=== PATIENT | male | born 1965 | race Caucasian/White ===

== ENCOUNTER → 2021-01-22 08:02 | Outpatient (BNVA) | payer BC, SELFPAY | PROVIDERS: PCP Internal Medicine; Visit Provider Internal Medicine ==

== ENCOUNTER 2021-02-03 11:24 | Outpatient (REF) | payer BC, SELFPAY ==
[2021-02-03 13:38] LABS: Estimated Average Glucose 286 mg/dL; Hemoglobin A1c % 11.6 %
[2021-02-03 14:04] LABS: Alanine Aminotransferase 27 U/L (0-40); Albumin Level 4.1 g/dL (3.5-5.0); Alkaline Phosphatase 123 U/L (39-117); Anion Gap 14 (12-20); Aspartate Amino Transferase 17 U/L (5-37); Bilirubin Total 0.7 mg/dL (0.0-1.0); Blood Urea Nitrogen 26 mg/dL (9-16); Calcium 9.1 mg/dL (8.4-10.2); Carbon Dioxide 22 mmol/L (22-29); Chloride 106 mmol/L (96-108); Cholesterol 97 mg/dL; Estimated Glomerular Filt Rate 54; Glucose Random 177 mg/dL (60-115); HDL Cholesterol 30 mg/dL; LDL Cholesterol Calculated 41 mg/dl; Potassium 4.4 mmol/L (3.3-5.1); Sodium 138 mmol/L (135-145); Total Protein 7.7 g/dL (6.5-8.0); Triglycerides 130 mg/dL
[2021-02-03 14:20] LABS: Vitamin D 25-OH Total 22.5 ng/mL (>30)
[2021-02-03 14:51] LABS: Microalbum/Creatinine Ratio Ur 952.3 ug/mg cr
[2021-02-04 10:57] LABS: LDL Cholesterol Direct 46 mg/dL (<100)
[2021-02-07 04:22] LABS: Fructosamine 333 umol/L (205-285)
[2021-02-07 13:36] LABS: Glutamic acid decarboxylase Ab <5 IU/mL (<5)
[2021-02-11 20:01] LABS: Insulinoma associated 2 aatb <5.4 U/mL (<5.4)
[2021-02-12 01:41] LABS: Islet Cell Antibody Screen NEGATIVE (NEGATIVE)
== END 2021-02-03 11:25 | disposition home or self-care (01) ==
LOC: HO.10HDL 11:24
PROVIDERS: Visit Provider Internal Medicine
DX: E11.65 Type 2 diabetes mellitus with hyperglycemia (principal); E55.9 Vitamin D deficiency, unspecified; E11.29 Type 2 diabetes mellitus with other diabetic kidney complication; R80.9 Proteinuria, unspecified; Z79.4 Long term (current) use of insulin
CPT/HCPCS: 36415; 80053; 80061; 82043; 82306; 82985; 83036; 83721; 86255; 86341

== ENCOUNTER → 2021-02-26 09:00 | Outpatient (BNVA) | payer BC, SELFPAY | PROVIDERS: PCP Internal Medicine; Visit Provider Dietitian, Registered | DX: E11.65 Type 2 diabetes mellitus with hyperglycemia (principal) | CPT/HCPCS: 97802 ==

== ENCOUNTER → 2021-03-25 08:56 | Outpatient (BNVA) | payer BC, SELFPAY | PROVIDERS: PCP Internal Medicine; Visit Provider Internal Medicine | DX: E11.65 Type 2 diabetes mellitus with hyperglycemia (principal); E11.29 Type 2 diabetes mellitus with other diabetic kidney complication; E11.21 Type 2 diabetes mellitus with diabetic nephropathy; E11.40 Type 2 diabetes mellitus with diabetic neuropathy, unspecified; I12.9 Hypertensive chronic kidney disease with stage 1 through stage 4 chronic kidney disease, or unspecified chronic kidney disease; R80.9 Proteinuria, unspecified; E78.5 Hyperlipidemia, unspecified; E55.9 Vitamin D deficiency, unspecified; I25.10 Atherosclerotic heart disease of native coronary artery without angina pectoris; N18.31 Chronic kidney disease, stage 3a; Z87.891 Personal history of nicotine dependence; Z79.4 Long term (current) use of insulin; Z79.899 Other long term (current) drug therapy | CPT/HCPCS: 82947 ==

== ENCOUNTER → 2021-04-09 13:11 | Outpatient (BNVA) | payer BC, SELFPAY | PROVIDERS: PCP Internal Medicine; Visit Provider Dietitian, Registered | DX: E11.65 Type 2 diabetes mellitus with hyperglycemia (principal); Z71.3 Dietary counseling and surveillance | CPT/HCPCS: 97803 ==

== ENCOUNTER → 2021-05-21 14:01 | Outpatient (BNVA) | payer BC, SELFPAY | PROVIDERS: PCP Internal Medicine; Visit Provider Dietitian, Registered | DX: E11.65 Type 2 diabetes mellitus with hyperglycemia (principal) | CPT/HCPCS: 97803 ==

== ENCOUNTER → 2021-07-14 13:04 | Outpatient (BNVA) | payer BC, SELFPAY | PROVIDERS: PCP Internal Medicine; Visit Provider Nurse Practitioner Gerontology | DX: E11.29 Type 2 diabetes mellitus with other diabetic kidney complication (principal); E11.21 Type 2 diabetes mellitus with diabetic nephropathy; E11.22 Type 2 diabetes mellitus with diabetic chronic kidney disease; I12.9 Hypertensive chronic kidney disease with stage 1 through stage 4 chronic kidney disease, or unspecified chronic kidney disease; N18.31 Chronic kidney disease, stage 3a; E55.9 Vitamin D deficiency, unspecified; E78.5 Hyperlipidemia, unspecified; R80.9 Proteinuria, unspecified; Z79.4 Long term (current) use of insulin | CPT/HCPCS: 82947; 83036 ==

== ENCOUNTER → 2021-08-24 13:27 | Outpatient (BNVA) | payer BC, SELFPAY | PROVIDERS: PCP Internal Medicine; Visit Provider Dietitian, Registered | DX: E11.65 Type 2 diabetes mellitus with hyperglycemia (principal); Z71.3 Dietary counseling and surveillance | CPT/HCPCS: 97803 ==

== ENCOUNTER 2021-10-14 13:07 | Outpatient (REF) | payer BC, SELFPAY ==
[2021-10-14 14:32] LABS: Alanine Aminotransferase 27 U/L (0-40); Albumin Level 4.1 g/dL (3.5-5.0); Alkaline Phosphatase 120 U/L (39-117); Anion Gap 17 (12-20); Aspartate Amino Transferase 19 U/L (5-37); Bilirubin Total 1.1 mg/dL (0.0-1.0); Blood Urea Nitrogen 30 mg/dL (9-16); Calcium 9.6 mg/dL (8.4-10.2); Carbon Dioxide 21 mmol/L (22-29); Chloride 105 mmol/L (96-108); Cholesterol 92 mg/dL; Estimated Glomerular Filt Rate 49; Glucose Fasting 164 mg/dL (60-99); HDL Cholesterol 32 mg/dL; LDL Cholesterol Calculated 40 mg/dl; Potassium 4.6 mmol/L (3.3-5.1); Sodium 138 mmol/L (135-145); Total Protein 7.6 g/dL (6.5-8.0); Triglycerides 104 mg/dL
[2021-10-14 14:50] LABS: Vitamin D 25-OH Total 29.2 ng/mL (>30)
[2021-10-14 14:57] LABS: Creatinine Urine 94.71 mg/dL; Microalbum/Creatinine Ratio Ur 382.2 ug/mg cr
[2021-10-15 03:07] LABS: LDL Cholesterol Direct 41 mg/dL (<100)
== END 2021-10-14 13:08 | disposition home or self-care (01) ==
LOC: HO.10HDL 13:07
PROVIDERS: Absent Provider Internal Medicine; Visit Provider Nurse Practitioner Gerontology
DX: E11.29 Type 2 diabetes mellitus with other diabetic kidney complication (principal); R80.9 Proteinuria, unspecified; E55.9 Vitamin D deficiency, unspecified; Z79.4 Long term (current) use of insulin
CPT/HCPCS: 36415; 80053; 80061; 82043; 82306; 83721

== ENCOUNTER → 2021-10-27 13:52 | Outpatient (BNVA) | payer BC, SELFPAY | PROVIDERS: PCP Internal Medicine; Visit Provider Nurse Practitioner Gerontology | DX: E11.29 Type 2 diabetes mellitus with other diabetic kidney complication (principal); R80.9 Proteinuria, unspecified; E11.21 Type 2 diabetes mellitus with diabetic nephropathy; I12.9 Hypertensive chronic kidney disease with stage 1 through stage 4 chronic kidney disease, or unspecified chronic kidney disease; E11.22 Type 2 diabetes mellitus with diabetic chronic kidney disease; N18.31 Chronic kidney disease, stage 3a; E55.9 Vitamin D deficiency, unspecified; E78.5 Hyperlipidemia, unspecified; Z79.4 Long term (current) use of insulin | CPT/HCPCS: 82947; 83036 ==

== ENCOUNTER → 2021-11-25 10:00 | Outpatient (BNVA) | payer BC, SELFPAY | PROVIDERS: PCP Internal Medicine; Visit Provider Dietitian, Registered | DX: E11.65 Type 2 diabetes mellitus with hyperglycemia (principal) | CPT/HCPCS: 97803 ==

== ENCOUNTER 2022-01-26 06:07 | Outpatient (REF) | payer BC, SELFPAY ==
[2022-01-26 11:47] LABS: Anion Gap 14 (12-20); Blood Urea Nitrogen 26 mg/dL (9-16); Calcium 9.4 mg/dL (8.4-10.2); Carbon Dioxide 22 mmol/L (22-29); Chloride 109 mmol/L (96-108); Estimated Glomerular Filt Rate 48; Glucose Fasting 183 mg/dL (60-99); Potassium 4.6 mmol/L (3.3-5.1); Sodium 140 mmol/L (135-145)
[2022-01-28 03:58] LABS: C Peptide 2.69 ng/mL (0.80-3.85)
[2022-01-31 21:47] LABS: Glutamic acid decarboxylase Ab <5 IU/mL (<5)
[2022-02-03 23:50] LABS: Islet Cell Antibody Screen NEGATIVE (NEGATIVE)
== END 2022-01-26 06:08 | disposition home or self-care (01) ==
LOC: HO.HMGCLDS 06:07
PROVIDERS: PCP Internal Medicine; Visit Provider Nurse Practitioner Gerontology
DX: E11.65 Type 2 diabetes mellitus with hyperglycemia (principal)
CPT/HCPCS: 36415; 80048; 84681; 86255; 86341

== ENCOUNTER → 2022-01-28 14:30 | Outpatient (BNVA) | payer BC, SELFPAY | PROVIDERS: PCP Internal Medicine; Visit Provider Nurse Practitioner Gerontology | DX: E11.29 Type 2 diabetes mellitus with other diabetic kidney complication (principal); E11.21 Type 2 diabetes mellitus with diabetic nephropathy; E11.22 Type 2 diabetes mellitus with diabetic chronic kidney disease; I12.9 Hypertensive chronic kidney disease with stage 1 through stage 4 chronic kidney disease, or unspecified chronic kidney disease; N18.31 Chronic kidney disease, stage 3a; E78.5 Hyperlipidemia, unspecified; E55.9 Vitamin D deficiency, unspecified; R80.9 Proteinuria, unspecified; Z79.4 Long term (current) use of insulin | CPT/HCPCS: 82947; 83036 ==

== ENCOUNTER → 2022-02-26 11:00 | Outpatient (BNVA) | payer BC, SELFPAY | PROVIDERS: PCP Internal Medicine; Visit Provider Dietitian, Registered | DX: E11.65 Type 2 diabetes mellitus with hyperglycemia (principal) | CPT/HCPCS: 97803 ==

== ENCOUNTER 2022-03-03 14:47 | Outpatient (REF) | payer BC, SELFPAY ==
--- NOTE | ~2022-03-03 | XR_ITS ---
EXAMINATION: XR HIP, LEFT CLINICAL INFORMATION: Pain left hand. COMPARISON: CT abdomen and pelvis 10/03/2018 ([facility]). TECHNIQUE: AP view pelvis is performed along with AP and frog-lateral projections left hip. FINDINGS: No fracture, dislocation, destructive process. Probable mild degenerative changes SI joints. Pubis unremarkable. Normal bony mineralization. Left hip has axial joint narrowing. There are osteophytes efface femoral head no visible erosive change or chondrocalcinosis. Small corticated ossicle is present at the superior aspect greater trochanter, similar to outside CT. XR/XR hip LT min 2V IMPRESSION: -Axial narrowing left hip with degenerative changes. No erosive change. -No destructive process. No fracture or dislocation.
== END 2022-03-03 14:48 | disposition home or self-care (01) ==
LOC: HO.XRAY 14:47
PROVIDERS: PCP Internal Medicine; Visit Provider Internal Medicine
DX: M25.552 Pain in left hip (principal)
CPT/HCPCS: 73502

== ENCOUNTER 2022-04-28 06:16 | Outpatient (REF) | payer BC, SELFPAY ==
[2022-04-28 11:43] LABS: Estimated Average Glucose 180 mg/dL; Hemoglobin A1c % 7.9 %
[2022-04-28 12:18] LABS: Creatinine Urine 35.11 mg/dL
[2022-04-28 12:30] LABS: Alanine Aminotransferase 26 U/L (0-40); Albumin Level 3.8 g/dL (3.5-5.0); Alkaline Phosphatase 124 U/L (39-117); Anion Gap 14 (12-20); Aspartate Amino Transferase 20 U/L (5-37); Bilirubin Total 0.8 mg/dL (0.0-1.0); Blood Urea Nitrogen 24 mg/dL (9-16); Calcium 8.9 mg/dL (8.4-10.2); Carbon Dioxide 21 mmol/L (22-29); Chloride 106 mmol/L (96-108); Cholesterol 86 mg/dL; Estimated Glomerular Filt Rate 54; Glucose Random 184 mg/dL (60-115); HDL Cholesterol 30 mg/dL; LDL Cholesterol Calculated 35 mg/dl; Potassium 4.7 mmol/L (3.3-5.1); Sodium 136 mmol/L (135-145); Total Protein 6.9 g/dL (6.5-8.0); Triglycerides 105 mg/dL
[2022-04-29 11:32] LABS: LDL Cholesterol Direct 37 mg/dL (<100)
== END 2022-04-28 06:17 | disposition home or self-care (01) ==
LOC: HO.HMGCLDS 06:16
PROVIDERS: PCP Internal Medicine; Visit Provider Internal Medicine
DX: E11.65 Type 2 diabetes mellitus with hyperglycemia (principal)
CPT/HCPCS: 36415; 80053; 80061; 82043; 83036; 83721

== ENCOUNTER 2022-10-05 06:42 | Outpatient (REF) | payer BC, SELFPAY ==
[2022-10-05 12:22] LABS: Hemoglobin A1c % > 14.0 %
[2022-10-05 13:01] LABS: Alanine Aminotransferase 22 U/L (0-40); Albumin Level 3.7 g/dL (3.5-5.0); Alkaline Phosphatase 160 U/L (39-117); Anion Gap 14 (12-20); Aspartate Amino Transferase 15 U/L (5-37); Bilirubin Total 0.8 mg/dL (0.0-1.0); Blood Urea Nitrogen 32 mg/dL (9-16); Calcium 9.1 mg/dL (8.4-10.2); Carbon Dioxide 22 mmol/L (22-29); Chloride 108 mmol/L (96-108); Estimated Glomerular Filt Rate 49; Glucose Random 288 mg/dL (60-115); Potassium 4.6 mmol/L (3.3-5.1); Sodium 139 mmol/L (135-145); Total Protein 6.7 g/dL (6.5-8.0)
== END 2022-10-05 06:43 | disposition home or self-care (01) ==
LOC: HO.HMGCLDS 06:42
PROVIDERS: PCP Internal Medicine; Visit Provider Internal Medicine
DX: E11.9 Type 2 diabetes mellitus without complications (principal)
CPT/HCPCS: 36415; 80053; 83036

== ENCOUNTER 2023-10-26 13:47 | Outpatient (AMB) | payer BC, SELFPAY ==
[2023-10-26 13:49] VITALS: BP 118/72; PULSE 93; O2SAT 97; BMI 38.5
--- NOTE | 2023-10-26 13:49 | HO.NEPHOV_ITS ---
HPI HPI Comments History of Present Illness Details 58 yr old man with CKD in a setting of l fred standing DM Baseline creatinine is around 1.4 mg/dL Last 2 months ago he stopped Insulin. A1C increased to 14 % !! He has resumed his medications [facility] Medical History CKD (chronic kidney disease) Diabetic nephropathy Eczema HLD (hyperlipidemia) HTN (hypertension) T2DM (type 2 diabetes mellitus) Vitamin D deficiency Surgical History History of surgery Family History Father Diabetes mellitus Mother Diabetes mellitus Social History Household Members: Spouse and Children Household Members Other:: daughter Alcohol intake: former Patient Tobacco Use Status: Former Tobacco user Substance Use Type: Former Substance User Vital Signs 10/26/23 13:49 Height 6 ft 2 in Weight 300 lb BMI 38.5 BP 118/72 Blood Pressure Location Rt brachial Position Sitting Pulse 93 Pulse Source Pulse Oximeter Pulse Oximetry (%) 97 Oxygen Delivery Method Room Air Physical Exam Vital Signs: Last Vital Signs Pulse 93 10/26/23 13:49 BP 118/72 10/26/23 13:49 Pulse Ox 97 10/26/23 13:49 Oxygen Delivery Method Room Air 10/26/23 13:49 BMI result Body Mass Index 38.5 Const General: comfortable Nutritional Appearance: well nourished Orientation/consciousness: patient oriented x3 HEENT Head: No normal to inspection Mouth: moist mucous membranes Neck Neck: Yes supple and Yes no JVD Resp Auscultation: clear to auscultation bilaterally, no rales and rub present Cardio Jugular venous distension: no JVD Palpation: no palpable S3 and no palpable S4 Heart sounds: no rubs GI Palpation (GI): Soft to palpation and nontender Percussion: No Fluid wave present General: Yes no CVA tenderness Back/Spine/Pelvis Back: no CVA tenderness Skin General skin exam: no rashes or lesions noted Neuro General: patient oriented x3 Extrem General: Yes no pedal edema and No clubbing Assessment & Plan Assessment & Plan (1) CKD (chronic kidney disease): Code(s): N18.9 - Chronic kidney disease, unspecified Qualifiers: Chronic kidney disease stage: stage 3 (moderate) Chronic kidney disease stage 3 subtype: stage 3a (GFR 45-59) Qualified Code(s): N18.31 - Chronic kid chaparro disease, stage 3a Plan CKD most likely due to diabetic kidney disease Recent Urine protein excretion was < 500 mg Creatinine is close to baseline Goal is to slow the progression of CKD Maintain A1C < 7% Concur with using Fraxiga and Lisinopril BP is excellent Discussed importance of weight loss and increasing physical activity Orders: Orders Total Protein Urine Random Today N18.9 - Chronic kidney disease, unspecified Basic Metabolic Panel 5 Months N18.9 - Chronic kidney disease, unspecified Creatinine Urine Today N18.9 - Chronic kidney disease, unspecified Coding Level of Care Code Est Pt Level 4 (94444) Diagnoses Stage 3a chronic kidney disease N18.31 Chronic kidney disease stage: stage 3 (moderate) Chronic kidney disease stage 3 subtype: stage 3a (GFR 45-59) Results Reviewed Nephrology Results: Sodium 139 mmol/L (135-145) 10/05/22 Potassium 4.6 mmol/L (3.3-5.1) 10/05/22 Chloride 108 mmol/L (96-108) 10/05/22 Carbon Dioxide 22 mmol/L (22-29) 10/05/22 BUN 32 mg/dL (9-16) H 10/05/22 Creatinine 1.50 mg/dL (0.5-1.4) H 10/05/22 Calcium 9.1 mg/dL (8.4-10.2) 10/05/22 Urine Creatinine 35.11 mg/dL 04/28/22
== END 2023-10-26 14:08 | disposition home or self-care (01) ==
PROVIDERS: PCP Internal Medicine; Visit Provider Internal Medicine Hypertension Specialist
DX: N18.31 Chronic kidney disease, stage 3a (principal)
CPT/HCPCS: 99214

== ENCOUNTER → 2023-10-26 13:47 | Outpatient (BNVA) | payer BC, SELFPAY | PROVIDERS: PCP Internal Medicine; Visit Provider Internal Medicine Hypertension Specialist ==

== ENCOUNTER 2023-10-26 14:12 | Outpatient (REF) | payer BC, SELFPAY ==
[2023-10-26 19:26] LABS: Creatinine Urine 90.52 mg/dL; Total Protein Urine Random 45 mg/dL (<12)
== END 2023-10-26 14:13 | disposition home or self-care (01) ==
LOC: HO.HKASLDS 14:12
PROVIDERS: Visit Provider Internal Medicine Hypertension Specialist
DX: N18.9 Chronic kidney disease, unspecified (principal)
CPT/HCPCS: 82570; 84156